=== PATIENT | female | born 1970 | race Caucasian/White ===

== ENCOUNTER 2025-01-26 17:13 | Inpatient (IN) ==
[2025-01-26 18:05] LABS: Basophils # (Auto) 0.07 K/mcL (0.00-0.30); Basophils % (Auto) 0.9 % (0.0-2.0); Eosinophils # (Auto) 0.07 K/mcL (0.00-0.70); Eosinophils % (Auto) 0.9 % (0.0-7.0); Hematocrit 28.7 % (34.1-44.9); Hemoglobin 10.1 g/dL (11.2-15.7); Lymphocytes # (Auto) 0.55 K/mcL (1.50-4.80); Lymphocytes % (Auto) 6.9 % (15.5-49.0); Mean Corpuscular HGB Conc 35.2 g/dL (31.0-36.0); Monocytes # (Auto) 0.89 K/mcL (0.10-0.90); Monocytes % (Auto) 11.1 % (1.0-12.0); Neutrophils % (Auto) 79.8 % (38.0-78.0); Platelet Count 150 K/mcL (140-440); RBC 3.21 M/mcL (3.59-5.38); WBC 8.0 K/mcL (4.5-11.0)
[2025-01-26 18:26] LABS: ALT/SGPT 36 U/L (<40); AST/SGOT 84 U/L (<32); Albumin 3.2 gm/dL (3.2-5.2); Albumin/Globulin Ratio 0.8 (1.0-2.3); Alkaline Phosphatase 282 U/L (39-117); Anion Gap 18.0 (8.0-16.0); Bilirubin,Total 1.6 mg/dL (0.1-1.0); Blood Urea Nitrogen 23 mg/dL (6-20); Calcium 7.7 mg/dL (8.6-10.4); Carbon Dioxide 14 mmol/L (22-30); Chloride 95 mmol/L (96-108); Globulin 3.9 gm/dL (2.2-3.7); Glucose 216 mg/dL (70-105); Potassium 2.7 mmol/L (3.3-5.1); Sodium 127 mmol/L (133-145)
[2025-01-26] MEDS: POTASSIUM CHLORIDE 40 MEQ in DEXTROSE 5% IN WATER 500 ML IV ONE (19:00)
[2025-01-26] MEDS: POTASSIUM CHLORIDE 20 MEQ/10 ML VIAL IV ONE (19:02)
[2025-01-26] MEDS: LACTATED RINGERS 1,000 ML IV ONE (19:03)
[2025-01-26 19:22] LABS: Phosphorous 5.2 mg/dL (2.5-4.5)
[2025-01-26] MEDS: MAGNESIUM SULFATE 2 GM/50 ML BAG IV ONE (19:52)
[2025-01-26] MEDS: CALCIUM GLUCONATE 4.65 MEQ in DEXTROSE 5% IN WATER 50 ML IV ONE (20:50)
[2025-01-26] MEDS: POTASSIUM CHLORIDE 20 MEQ TABLET PO ONE (21:50)
[2025-01-26 22:24] LABS: Bacteria,Urine Few /hpf (0); Bilirubin,Urine Negative (Negative); Color,Urine Amber; Glucose,Urine (UA) Negative (Negative); Ketones,Urine Negative (Negative); Leukocyte Esterase,Urine Negative /uL (Negative); PH,Urine 5.5 (5.0-9.0); Protein,Urine 100 mg/dL (Negative); Specific Gravity,Urine 1.015 (1.000-1.035); Urobilinogen,Urine Normal
[2025-01-26 23:53] LABS: Anion Gap 14.0 (8.0-16.0); Blood Urea Nitrogen 22 mg/dL (6-20); Calcium 7.7 mg/dL (8.6-10.4); Carbon Dioxide 14 mmol/L (22-30); Chloride 97 mmol/L (96-108); Glucose 218 mg/dL (70-105); Potassium 3.3 mmol/L (3.3-5.1); Sodium 125 mmol/L (133-145)
[2025-01-27 00:54] LABS: Sodium, Urine Random < 20 mmol/L
[2025-01-27 01:00] LABS: Alcohol, Urine None Detected; Barbiturate Screen,Urine None detected; Benzodiazepines Screen,Urine None detected; Fentanyl, Urine Screen None Detected; Opiate Screen,Urine None detected; Oxycodone, Urine Screen None detected; Phencyclidine Screen,Urine None detected
[2025-01-27] MEDS: THIAMINE 100 MG in 0.9 % SODIUM CHLORIDE 50 ML IV ONE (01:04)
[2025-01-27] MEDS: THIAMINE 200 MG in 0.9 % SODIUM CHLORIDE 50 ML IV ONE ×2 (01:05→01:29)
[2025-01-27 01:06] LABS: Thyroid Stimulating Hormone 1.19 uIU/mL (0.27-5.01)
[2025-01-27] MEDS ORDERED: DEXTROSE 31 GM ORAL.SUSP PO PRN (01:46)
[2025-01-27] MEDS ORDERED: DEXTROSE 50% 50 ML VIAL IV PRN (01:46)
[2025-01-27] MEDS: THIAMINE 100 MG/ML VIAL ONE (01:48)
[2025-01-27] MEDS: SODIUM CHLORIDE 1 GM TABLET PO ONE (01:52)
[2025-01-27] MEDS: cefTRIAXone 1 GM VIAL ONE (02:11)
[2025-01-27] MEDS: 0.9 % SODIUM CHLORIDE 1,000 ML IV SCH (02:12)
[2025-01-27] MEDS: cefTRIAXone 2 GM in DEXTROSE 5% IN WATER 50 ML IV ONE (02:36)
[2025-01-27 04:37] LABS: ALT/SGPT 28 U/L (<40); AST/SGOT 66 U/L (<32); Albumin 2.6 gm/dL (3.2-5.2); Albumin/Globulin Ratio 0.8 (1.0-2.3); Alkaline Phosphatase 227 U/L (39-117); Anion Gap 13.0 (8.0-16.0); Bilirubin,Direct 0.8 mg/dL (<0.3); Bilirubin,Total 1.2 mg/dL (0.1-1.0); Blood Urea Nitrogen 21 mg/dL (6-20); Calcium 7.5 mg/dL (8.6-10.4); Carbon Dioxide 14 mmol/L (22-30); Chloride 101 mmol/L (96-108); Globulin 3.2 gm/dL (2.2-3.7); Glucose 146 mg/dL (70-105); Phosphorous 3.2 mg/dL (2.5-4.5); Potassium 3.0 mmol/L (3.3-5.1); Sodium 128 mmol/L (133-145); Triglycerides 83 mg/dL (<150); Uric Acid 8.3 mg/dL (2.5-8.0)
[2025-01-27 04:39] LABS: Basophils # (Auto) 0.02 K/mcL (0.00-0.30); Basophils % (Auto) 0.5 % (0.0-2.0); Eosinophils # (Auto) 0.09 K/mcL (0.00-0.70); Eosinophils % (Auto) 2.2 % (0.0-7.0); Hematocrit 25.2 % (34.1-44.9); Hemoglobin 8.6 g/dL (11.2-15.7); Lymphocytes # (Auto) 0.78 K/mcL (1.50-4.80); Lymphocytes % (Auto) 18.9 % (15.5-49.0); Mean Corpuscular HGB Conc 34.1 g/dL (31.0-36.0); Monocytes # (Auto) 0.61 K/mcL (0.10-0.90); Monocytes % (Auto) 14.8 % (1.0-12.0); Neutrophils % (Auto) 63.4 % (38.0-78.0); Platelet Count 84 K/mcL (140-440); RBC 2.73 M/mcL (3.59-5.38); WBC 4.1 K/mcL (4.5-11.0)
[2025-01-27] MEDS: 0.9 % SODIUM CHLORIDE 10 ML SYRINGE IV SCH (05:35)
[2025-01-27] MEDS: INSULIN LISPRO 1 UNIT/0.01 ML UNIT SQ SCH (07:30)
[2025-01-27] MEDS: CALCIUM CARBONATE 500 MG TAB.CHEW CHEWED SCH (08:18)
[2025-01-27] MEDS: SODIUM CHLORIDE 1 GM TABLET PO SCH (08:18)
[2025-01-27] MEDS: POTASSIUM CHLORIDE 20 MEQ TABLET PO SCH (08:19)
[2025-01-27] MEDS: HEPARIN 5,000 UNIT/ML VIAL SQ SCH (08:19)
[2025-01-27] MEDS: SODIUM BICARBONATE 650 MG TABLET PO SCH (14:30)
[2025-01-28 06:17] LABS: Basophils # (Auto) 0.04 K/mcL (0.00-0.30); Basophils % (Auto) 1.0 % (0.0-2.0); Eosinophils # (Auto) 0.10 K/mcL (0.00-0.70); Eosinophils % (Auto) 2.6 % (0.0-7.0); Hematocrit 26.5 % (34.1-44.9); Hemoglobin 8.7 g/dL (11.2-15.7); Lymphocytes # (Auto) 0.73 K/mcL (1.50-4.80); Lymphocytes % (Auto) 19.0 % (15.5-49.0); Mean Corpuscular HGB Conc 32.8 g/dL (31.0-36.0); Monocytes # (Auto) 0.49 K/mcL (0.10-0.90); Monocytes % (Auto) 12.8 % (1.0-12.0); Neutrophils % (Auto) 64.1 % (38.0-78.0); Platelet Count 81 K/mcL (140-440); RBC 2.73 M/mcL (3.59-5.38); WBC 3.8 K/mcL (4.5-11.0)
[2025-01-28 06:42] LABS: ALT/SGPT 24 U/L (<40); AST/SGOT 60 U/L (<32); Albumin 2.8 gm/dL (3.2-5.2); Albumin/Globulin Ratio 0.9 (1.0-2.3); Alkaline Phosphatase 227 U/L (39-117); Anion Gap 11.0 (8.0-16.0); Bilirubin,Direct 0.6 mg/dL (<0.3); Bilirubin,Total 0.9 mg/dL (0.1-1.0); Blood Urea Nitrogen 18 mg/dL (6-20); Calcium 7.7 mg/dL (8.6-10.4); Carbon Dioxide 14 mmol/L (22-30); Chloride 111 mmol/L (96-108); Globulin 3.1 gm/dL (2.2-3.7); Glucose 110 mg/dL (70-105); Phosphorous 2.3 mg/dL (2.5-4.5); Potassium 3.6 mmol/L (3.3-5.1); Sodium 136 mmol/L (133-145); Triglycerides 67 mg/dL (<150); Uric Acid 7.3 mg/dL (2.5-8.0)
[2025-01-28] MEDS: NEUTRA PHOS 1 PACKET PO ONE (07:44)
[2025-01-28] MEDS: SPIRONOLACTONE 25 MG TABLET PO SCH (08:05)
[2025-01-28] MEDS: 0.9 % SODIUM CHLORIDE 1,000 ML IV SCH (08:24)
[2025-01-28] MEDS: MAGNESIUM SULFATE 2 GM/50 ML BAG IV ONE (08:43)
[2025-01-28 10:40] LABS: Estimated Average Glucose(eAG) 177.0 mg/dL; Hemoglobin A1C 7.8 % Hgb (4.0-6.0)
[2025-01-28] MEDS: CHOLESTYRAMINE/ASPARTAME 4 GM POWD.PACK PO ONE (12:17)
[2025-01-28] MEDS: PSYLLIUM HUSK 5.8 GM PACKET PO ONE (19:29)
[2025-01-28] MEDS: CHOLESTYRAMINE/ASPARTAME 4 GM POWD.PACK PO SCH (20:55)
[2025-01-29 07:04] LABS: ALT/SGPT 20 U/L (<40); AST/SGOT 46 U/L (<32); Albumin 2.6 gm/dL (3.2-5.2); Albumin/Globulin Ratio 0.7 (1.0-2.3); Alkaline Phosphatase 207 U/L (39-117); Anion Gap 12.0 (8.0-16.0); Bilirubin,Direct 0.5 mg/dL (<0.3); Bilirubin,Total 0.7 mg/dL (0.1-1.0); Blood Urea Nitrogen 17 mg/dL (6-20); Calcium 8.2 mg/dL (8.6-10.4); Carbon Dioxide 16 mmol/L (22-30); Chloride 113 mmol/L (96-108); Globulin 3.6 gm/dL (2.2-3.7); Glucose 156 mg/dL (70-105); Phosphorous 2.1 mg/dL (2.5-4.5); Potassium 3.9 mmol/L (3.3-5.1); Sodium 141 mmol/L (133-145); Triglycerides 56 mg/dL (<150); Uric Acid 6.6 mg/dL (2.5-8.0)
[2025-01-29 07:22] LABS: Basophils # (Auto) 0.05 K/mcL (0.00-0.30); Basophils % (Auto) 0.9 % (0.0-2.0); Eosinophils # (Auto) 0.14 K/mcL (0.00-0.70); Eosinophils % (Auto) 2.6 % (0.0-7.0); Hematocrit 26.5 % (34.1-44.9); Hemoglobin 8.7 g/dL (11.2-15.7); Lymphocytes # (Auto) 0.89 K/mcL (1.50-4.80); Lymphocytes % (Auto) 16.4 % (15.5-49.0); Mean Corpuscular HGB Conc 32.8 g/dL (31.0-36.0); Monocytes # (Auto) 0.50 K/mcL (0.10-0.90); Monocytes % (Auto) 9.2 % (1.0-12.0); Neutrophils % (Auto) 70.2 % (38.0-78.0); Platelet Count 87 K/mcL (140-440); RBC 2.75 M/mcL (3.59-5.38); WBC 5.4 K/mcL (4.5-11.0)
[2025-01-29] MEDS: SPIRONOLACTONE 25 MG TABLET PO SCH (08:34)
[2025-01-29] MEDS: PSYLLIUM HUSK 5.8 GM PACKET PO SCH (08:35)
[2025-01-29] MEDS: PANTOPRAZOLE 40 MG TABLET PO SCH (10:03)
[2025-01-29] MEDS: ONDANSETRON 4 MG/2 ML VIAL IV PRN (10:14)
[2025-01-29] MEDS: NEUTRA PHOS 1 PACKET PO SCH (10:42)
[2025-01-29] MEDS: LOPERAMIDE 2 MG CAPSULE PO ONE (10:42)
[2025-01-29] MEDS: CHOLESTYRAMINE/ASPARTAME 4 GM POWD.PACK PO ONE (12:43)
[2025-01-29 16:10] LABS: Anion Gap 12.0 (8.0-16.0); Blood Urea Nitrogen 16 mg/dL (6-20); Calcium 8.3 mg/dL (8.6-10.4); Carbon Dioxide 13 mmol/L (22-30); Chloride 114 mmol/L (96-108); Glucose 149 mg/dL (70-105); Potassium 4.9 mmol/L (3.3-5.1); Sodium 139 mmol/L (133-145)
[2025-01-29] MEDS: SODIUM BICARBONATE 650 MG TABLET PO SCH (16:51)
[2025-01-29 18:59] LABS: Creatinine,Urine 186.0 mg/dL (28.0-217.0)
[2025-01-29] MEDS: PREGABALIN 25 MG CAPSULE PO SCH (20:18)
[2025-01-30 06:24] LABS: Basophils # (Auto) 0.04 K/mcL (0.00-0.30); Basophils % (Auto) 0.7 % (0.0-2.0); Eosinophils # (Auto) 0.24 K/mcL (0.00-0.70); Eosinophils % (Auto) 4.4 % (0.0-7.0); Hematocrit 26.7 % (34.1-44.9); Hemoglobin 8.4 g/dL (11.2-15.7); Lymphocytes # (Auto) 1.01 K/mcL (1.50-4.80); Lymphocytes % (Auto) 18.4 % (15.5-49.0); Mean Corpuscular HGB Conc 31.5 g/dL (31.0-36.0); Monocytes # (Auto) 0.45 K/mcL (0.10-0.90); Monocytes % (Auto) 8.2 % (1.0-12.0); Neutrophils % (Auto) 67.9 % (38.0-78.0); Platelet Count 71 K/mcL (140-440); RBC 2.64 M/mcL (3.59-5.38); WBC 5.5 K/mcL (4.5-11.0)
[2025-01-30 06:57] LABS: ALT/SGPT 19 U/L (<40); AST/SGOT 39 U/L (<32); Albumin 2.4 gm/dL (3.2-5.2); Albumin/Globulin Ratio 0.7 (1.0-2.3); Alkaline Phosphatase 174 U/L (39-117); Anion Gap 10.0 (8.0-16.0); Bilirubin,Direct 0.4 mg/dL (<0.3); Bilirubin,Total 0.6 mg/dL (0.1-1.0); Blood Urea Nitrogen 14 mg/dL (6-20); Calcium 8.3 mg/dL (8.6-10.4); Carbon Dioxide 14 mmol/L (22-30); Chloride 113 mmol/L (96-108); Globulin 3.3 gm/dL (2.2-3.7); Glucose 123 mg/dL (70-105); Phosphorous 2.9 mg/dL (2.5-4.5); Potassium 5.0 mmol/L (3.3-5.1); Sodium 137 mmol/L (133-145); Triglycerides 74 mg/dL (<150); Uric Acid 6.2 mg/dL (2.5-8.0)
[2025-01-30] MEDS: LACTOBACILLUS 1 CAPSULE PO SCH (09:17)
[2025-02-02 09:40] LABS: Chloride, Feces 71.0 mEq/L; Potassium, Feces 10.4 mEq/L; Sodium, Feces 141.0 mEq/L
== END 2025-01-30 15:00 | disposition home or self-care (01) | DRG 641 ==
LOC: ED 17:13 → ICU 01-27 01:37
PROVIDERS: ADMIT Student in an Organized Health Care Education/Training Program; ATTEND Student in an Organized Health Care Education/Training Program